=== PATIENT | male | born 1980 | race Caucasian/White ===

== ENCOUNTER 2020-10-18 08:56 | Emergency (ER) | payer OTHER ==
[~2020-10-18] VITALS: Ht 172.7 cm; Wt 88.6 kg
[2020-10-18 09:05] VITALS: BP 150/97
[2020-10-18] MEDS ORDERED: DIPH,PERTUSS(ACELL),TET VAC/PF 0.5 ML SYRINGE. VAX IM ONE (09:30)
[2020-10-18] MEDS ORDERED: LIDOCAINE 2% Multi-Dose 20 ML VIAL. IJ ONE (09:30)
--- NOTE | 2020-10-18 09:35 | ED.ADGEN ---
Past Medical History Past Medical History: Hypertension Past Surgical History: No Surgical History Smoking Status: Never Smoker Alcohol Use: Occasionally General Adult EDM: Chief Complaint: LACERATION/AVULSION HPI: HPI: Patient is a 40-year-old previously healthy male who presents to the emergency room after cutting his right thumb. Patient was using a multi tool that he keeps very clean to cut hose at work. He slipped with the tool and cut his thumb instead. He states he does have some numbness around the wound but does have full feeling distal to the wound. He states that he had minimal bleeding. He does have some throbbing pain. Pain is worse with movement. Unsure of last tetanus shot. Review of Systems: Review of Systems: Complete ROS is negative unless otherwise documented in HPI Current Medications: Current Medications Medications (Trade) Dose Ordered Sig/Jesus Start Time Stop Time Status Last Admin Dose Admin Diphtheria/ Tetanus/Acell Pertussis (ADACEL TDap SYRINGE) 0.5 ml ONCE ONCE 10/18/20 09:30 10/18/20 09:31 DC 10/18/20 09:44 0.5 ML Lidocaine HCl (Lidocaine 2% 20ml Vial) 20 ml 1X ONCE 10/18/20 09:30 10/18/20 09:31 DC 10/18/20 09:43 20 ML Allergies: Allergies: Allergies Coded Allergies Type Severity Reaction Last Updated Verified bee venom protein (honey bee) Allergy Unknown 10/18/20 Yes Physical Exam: PE: General: Awake, alert, NAD. Well Nourished, well hydrated. Cooperative HEENT: Atraumatic, EOMI, PERRL, airway patent, moist oral mucosa Neck: Supple, trachea midline Respiratory: CTA bilaterally, normal effort, no wheezing/crackles CV: RRR, no murmur, cap refill <2 GI: Soft, nondistended, nontender, no masses MSK: No obvious deformities Skin: Warm, dry. Right thumb: Laceration through the pad of the thumb that extends into the nailbed, minimal bleeding, distal sensation intact, full range of motion of the finger Neuro: A&O x3, speech NL, sensory and motor grossly intact, no focal deficits Psych: Normal affect, normal mood, not suicidal or homicidal Current Patient Data: Vital Signs: Vital Signs Date Time Temp Pulse Resp B/P (MAP) Pulse Ox O2 Delivery O2 Flow Rate FiO2 10/18/20 09:05 98.2 87 16 150/97 (114) 98 Room Air 98.2 EKG: EKG: [] Heart Score: C/O Chest Pain: N/A Risk Factors: Risk Factors: DM, Current or recent (<one month) smoker, HTN, HLP, family history of CAD, obesity. Risk Scores: Score 0 - 3: 2.5% MACE over next 6 weeks - Discharge Home Score 4 - 6: 20.3% MACE over next 6 weeks - Admit for Clinical Observation Score 7 - 10: 72.7% MACE over next 6 weeks - Early Invasive Strategies Radiology/Procedures: Radiology/Procedures: Laceration Repair by me: Anesthesia: 2% lidocaine digital block Location: Third digit right hand Tendon/Joint/Nerves: No injury Foreign body: None detected after copious irrigation and exploration with NS and chlorhexidine Technique: 6 simple Interrupted Sutures with 4-0 Ethilon Complexity: No subcutaneous sutures/mucosal repair/edge excision Post Closure Length: 3 cm Patient's bleeding was easily controlled in the department and there is no indication of anemia. No evidence of compartment syndrome, neurologic injury, vascular injury, open joint, tendon laceration, or foreign body. Patient is appropriate for outpatient follow up. Dermabond was then applied over the lacerated part of the lateral fingernail, the underlying nailbed appeared intact [] [] Course & Med Decision Making: Course & Med Decision Making Pertinent Labs and Imaging studies reviewed. (See chart for details) Patient is a 40-year-old male who presents to the emergency room complaining of laceration to the thumb. Tetanus will be updated. X-ray was done to evaluate the bone. Patient does have some minimal numbness but does have distal sensation. This is likely due to the wound. Wound was repaired. Patient will be placed on Keflex. Patient's test results and vitals while in the ED were fully reviewed and discussed with the patient. Patient is stable and at this time does not need admission to the hospital. We have discussed strict return precautions and the importance of following up with their Primary Care Physician. Patient stated understanding and was given an opportunity to ask any questions. Patient is in agreement with plan. Dragon Disclaimer: Dragon Disclaimer: This electronic medical record was generated, in whole or in part, using a voice recognition dictation system. Departure Departure Impression: Primary Impression: Laceration of thumb with damage to nail Disposition: 01 DC HOME SELF CARE/HOMELESS Condition: STABLE Patient Instructions: Fingertip Laceration, Laceration Care, Adult Scripts Cephalexin (CEPHALEXIN) 500 Mg Capsule 1 CAP PO BID, #14 CAP Prov: SUAD MCARTHUR MD 10/18/20 Splinting Splinting : Location: Third digit left hand Pre-Made Type: metal (Aluminum finger splint) Pre-Proc Neuro Vasc Exam: normal Post-Proc Neuro Vasc Exam: normal, unchanged from pre-exam SUAD MCARTHUR MD Oct 18, 2020 09:34 SENTHIL GRAHAM APRN Oct 18, 2020 11:17
--- NOTE | 2020-10-18 09:48 | RAD ---
Right third finger 3 views. HISTORY: Laceration 3 views were taken of the right third finger. There is soft tissue injury. There is not evidence of a n acute fracture or osseous abnormality. There is no opaque foreign body. IMPRESSION: 1. Soft tissue injury right third finger. 2. No fracture or osseous abnormality or foreign body. Electronically signed by: Pasquale Denny MD (10/18/2020 9:46 AM) [id number]
[2020-10-18] MEDS ORDERED: CEPH500C PO (11:25)
== END 2020-10-18 11:40 | disposition home or self-care (01) ==
LOC: ER 08:56
DX: S61.011A Laceration without foreign body of right thumb without damage to nail, initial encounter (principal); R20.2 Paresthesia of skin; I10 Essential (primary) hypertension; Z91.030 Bee allergy status; W26.8XXA Contact with other sharp object(s), not elsewhere classified, initial encounter; Y93.89 Activity, other specified; Y92.89 Other specified places as the place of occurrence of the external cause; Y99.8 Other external cause status
CPT/HCPCS: 12002; 73140; 90471; 90715; 99283